=== PATIENT | female | born 1970 | race Caucasian/White ===

== ENCOUNTER 2020-11-04 23:36 | Emergency (ER) | payer OTHER ==
[2020-11-05 00:41] LABS: HEMOGLOBIN 14.7 gm/dl (12.3-15.3); RED BLOOD COUNT 5.08 M/UL (4.00-5.10); WHITE BLOOD COUNT 12.9 K/UL (4.5-11.0)
[2020-11-05 01:01] LABS: BUN/CREATININE RATIO 19 (0-10)
== END 2020-11-05 01:50 | disposition home or self-care (01) ==
LOC: ER1 23:36
PROVIDERS: Physician Assistant
DX: R33.9 Retention of urine, unspecified (principal); I10 Essential (primary) hypertension; Z88.1 Allergy status to other antibiotic agents; Z90.49 Acquired absence of other specified parts of digestive tract
CPT/HCPCS: 51702; 80053; 81001; 85025; 87086; 99283

== ENCOUNTER 2020-11-05 09:54 | Emergency (ER) | payer OTHER | END 2020-11-05 11:52 | disposition home or self-care (01) | LOC: ER1 09:54 | DX: Z46.6 Encounter for fitting and adjustment of urinary device (principal); I10 Essential (primary) hypertension; Z88.1 Allergy status to other antibiotic agents; Z90.49 Acquired absence of other specified parts of digestive tract | CPT/HCPCS: 99283 ==

== ENCOUNTER 2021-03-28 11:37 | Emergency (ER) | payer OTHER ==
[~2021-03-28] VITALS: Ht 170.2 cm; Wt 153.3 kg
== END 2021-03-28 15:00 | disposition home or self-care (01) ==
LOC: ER1 11:37
DX: U07.1 COVID-19 (principal); Z23 Encounter for immunization; I10 Essential (primary) hypertension; K21.9 Gastro-esophageal reflux disease without esophagitis
CPT/HCPCS: 99283; M0245